=== PATIENT | female | born 1980 | race Caucasian/White ===

== ENCOUNTER 2017-09-30 18:59 | Emergency (ER) | payer MEDICAID | END 2017-09-30 20:43 | disposition home or self-care (01) | LOC: E/R 20:43 | DX: B34.9 Viral infection, unspecified (principal) | CPT/HCPCS: 99283; Z7502 ==

== ENCOUNTER 2018-03-09 09:20 | Emergency (ER) | payer MEDICAID ==
[2018-03-09 09:54] LABS: URINE BLOOD (Dip) POC 2+ (NEGATIVE); URINE GLUCOSE (Dip) POC Negative (NEGATIVE); URINE KETONES (Dip) POC Trace (NEGATIVE); URINE LEUKOCYTE EST (Dip) POC Negative (NEGATIVE); URINE NITRITE (Dip) POC Negative (NEGATIVE); URINE TOTAL PROTEIN POC Negative (NEGATIVE)
[2018-03-09 09:54] LABS: URINE PH (Dip) POC 5.5 (5.0-8.5)
[2018-03-09] MEDS: ACETAMINOPHEN 325 MG TAB PO ×2 (10:00→10:02)
[2018-03-09] MEDS: morphine 2 MG INJ IV ×2 (10:02→10:22)
[2018-03-09] MEDS: SOD CHLORIDE 0.9% 1,000 ML IV ×2 (10:02→11:40)
[2018-03-09] MEDS: ONDANSETRON 4 MG INJ IV ×2 (10:11→11:25)
[2018-03-09 10:20] LABS: ADD MAN DIFF? NO
[2018-03-09 10:22] LABS: BASOPHIL # 0.1 10^3/ul (0.0-0.1); BASOPHILS % 0.3 % (0.0-2.0); EOSINOPHILS # 0.1 10^3/ul (0.0-0.5); EOSINOPHILS % 0.4 % (0.0-7.0); HEMATOCRIT 37.7 % (37.0-47.0); HEMOGLOBIN 12.6 g/dl (12.0-16.0); LYMPHOCYTES # 2.6 10^3/ul (0.8-2.9); LYMPHOCYTES % 13.1 % (15.0-51.0); MEAN CORPUSCULAR HEMOGLOBIN 27.6 pg (29.0-33.0); MEAN CORPUSCULAR HGB CONC 33.4 g/dl (32.0-37.0); MEAN CORPUSCULAR VOLUME 82.5 fl (82.0-101.0); MEAN PLATELET VOLUME 10.9 fl (7.4-10.4); MONOCYTES % 4.8 % (0.0-11.0); NEUTROPHIL # 15.9 10^3/ul (1.6-7.5); NEUTROPHILS % 80.8 % (39.0-77.0); PLATELET COUNT 249 10^3/UL (140-415); RED BLOOD COUNT 4.57 10^6/ul (4.20-5.40)
[2018-03-09 10:22] LABS: WHITE BLOOD COUNT 19.7 10^3/ul (4.8-10.8)
[2018-03-09 10:39] LABS: ALANINE AMINOTRANSFERASE 28 IU/L (13-69); ALBUMIN/GLOBULIN RATIO 1.33; ALKALINE PHOSPHATASE 73 IU/L (42-121); ANION GAP 13 (8-16); ASPARTATE AMINO TRANSFERASE 16 IU/L (15-46); BILIRUBIN,INDIRECT 0.3 mg/dl (0-1.1); BILIRUBIN,TOTAL 0.3 mg/dl (0.2-1.3); BLOOD UREA NITROGEN 12 mg/dl (7-20); CALCIUM 9.6 mg/dl (8.4-10.2); CARBON DIOXIDE 22 mmol/L (21-31); CHLORIDE 107 mmol/L (97-110); CREATININE 0.43 mg/dl (0.44-1.00); GLUCOSE 110 mg/dl (70-220); LIPASE 91 U/L (23-300); POTASSIUM 3.9 mmol/L (3.5-5.1); SODIUM 138 mmol/L (135-144)
[2018-03-09 10:57] LABS: ADD UMIC YES; UR ASCORBIC ACID NEGATIVE (NEGATIVE); UR BILIRUBIN (Dip) NEGATIVE (NEGATIVE); UR BLOOD (Dip) 2+ mg/dL (NEGATIVE); UR CLARITY CLEAR (CLEAR); UR COLOR YELLOW (YELLOW); UR GLUCOSE (Dip) NEGATIVE (NEGATIVE); UR KETONES (Dip) NEGATIVE (NEGATIVE); UR LEUKOCYTE ESTERASE (Dip) NEGATIVE Leu/ul (NEGATIVE); UR NITRITE (Dip) NEGATIVE (NEGATIVE); UR RBC 4 /HPF (0-5); UR SPECIFIC GRAVITY (Dip) 1.029 (1.003-1.030); UR SQUAMOUS EPITHELIAL CELL FEW /HPF (FEW); UR TOTAL PROTEIN (Dip) NEGATIVE (NEGATIVE); UR UROBILINOGEN (Dip) NEGATIVE (NEGATIVE); UR WBC 0 /HPF (0-5)
[2018-03-09] MEDS: morphine 4 MG/ML VIAL IV (11:39)
[2018-03-09] MEDS: METOCLOPRAMIDE 10 MG INJ IV (11:39)
== END 2018-03-09 16:31 | disposition home or self-care (01) ==
LOC: FTE 09:20
DX: O26.892 Other specified pregnancy related conditions, second trimester (principal); K80.20 Calculus of gallbladder without cholecystitis without obstruction; O99.612 Diseases of the digestive system complicating pregnancy, second trimester; R10.2 Pelvic and perineal pain; O21.9 Vomiting of pregnancy, unspecified; Z3A.14 14 weeks gestation of pregnancy
CPT/HCPCS: 36415; 74181; 76705; 76805; 80053; 81001; 81003; 81025; 83690; 85025; 96374; 96375; 96376; 99285-25

== ENCOUNTER 2018-07-21 16:57 | Outpatient (CLI) | payer MEDICAID ==
[2018-07-21] MEDS: LACTATED RINGER'S 1,000 ML IV (18:50)
== END 2018-07-21 21:02 | disposition home or self-care (01) ==
LOC: OBT 16:57 → L-D 16:59 → OBT 21:02
DX: O24.410 Gestational diabetes mellitus in pregnancy, diet controlled (principal); Z3A.33 33 weeks gestation of pregnancy
CPT/HCPCS: 36415; 76818; 96360

== ENCOUNTER 2018-07-24 09:49 | Outpatient (CLI) | payer MEDICAID | END 2018-07-24 10:50 | disposition home or self-care (01) | LOC: OBT 09:49 → L-D 09:50 → OBT 10:50 | DX: O36.8130 Decreased fetal movements, third trimester, not applicable or unspecified (principal); Z3A.34 34 weeks gestation of pregnancy | CPT/HCPCS: 76818 ==

== ENCOUNTER 2018-08-03 11:08 | Inpatient (IN) | payer MEDICAID ==
[~2018-08-03 11:08] MED LIST: EPHEDrine SULFATE 50 MG/5 ML SYG
[2018-08-03] MEDS: LACTATED RINGER'S 1,000 ML IV ×2 (11:37→13:53)
[2018-08-03 17:19] LABS: ADD MAN DIFF? NO
[2018-08-03 17:23] LABS: WHITE BLOOD COUNT 7.7 10^3/ul (4.8-10.8)
[2018-08-03 17:23] LABS: BASOPHILS % 0.4 % (0.0-2.0); EOSINOPHILS # 0.1 10^3/ul (0.0-0.5); EOSINOPHILS % 0.9 % (0.0-7.0); HEMATOCRIT 36.6 % (37.0-47.0); HEMOGLOBIN 11.9 g/dl (12.0-16.0); LYMPHOCYTES # 1.9 10^3/ul (0.8-2.9); LYMPHOCYTES % 24.9 % (15.0-51.0); MEAN CORPUSCULAR HGB CONC 32.5 g/dl (32.0-37.0); MEAN CORPUSCULAR VOLUME 83.2 fl (82.0-101.0); MEAN PLATELET VOLUME 12.2 fl (7.4-10.4); MONOCYTE # 0.9 10^3/ul (0.3-0.9); MONOCYTES % 11.3 % (0.0-11.0); NEUTROPHIL # 4.8 10^3/ul (1.6-7.5); NEUTROPHILS % 62.2 % (39.0-77.0); PLATELET COUNT 193 10^3/UL (140-415); RED CELL DISTRIBUTION WIDTH 13.4 % (11.5-14.5)
[2018-08-03 17:43] LABS: ALANINE AMINOTRANSFERASE 21 IU/L (13-69); ALBUMIN 3.5 g/dl (3.3-4.9); ALBUMIN/GLOBULIN RATIO 1.25; ALKALINE PHOSPHATASE 162 IU/L (42-121); ANION GAP 9 (5-13); ASPARTATE AMINO TRANSFERASE 22 IU/L (15-46); BILIRUBIN,INDIRECT 0.2 mg/dl (0-1.1); BILIRUBIN,TOTAL 0.2 mg/dl (0.2-1.3); BLOOD UREA NITROGEN 10 mg/dl (7-20); CALCIUM 9.2 mg/dl (8.4-10.2); CARBON DIOXIDE 23 mmol/L (21-31); CHLORIDE 105 mmol/L (97-110); CREATININE 0.34 mg/dl (0.44-1.00); Estimated GFR > 60 mL/min (>60); GLUCOSE 53 mg/dl (70-220); SODIUM 137 mmol/L (135-144); TOTAL PROTEIN 6.3 g/dl (6.1-8.1)
[2018-08-03] MEDS: DEXTROSE 5%-LR 1,000 ML IV (18:18)
[2018-08-03 18:30] LABS: HEPATITIS B SURFACE ANTIBODY NEGATIVE (NEGATIVE)
[2018-08-03] MEDS: BETAMET NA PHOS/AC(6 MG/ML) 5ML INJ INJ (18:42)
[2018-08-03] MEDS ORDERED: MAGNESIUM SULFATE 4 GM/100 ML 100 ML IVPB (19:00)
[2018-08-03] MEDS ORDERED: MAGNESIUM SULFATE 20 GM/500 ML 500 ML IV (19:00)
[2018-08-03] MEDS: BETAMET NA PHOS/AC(6 MG/ML) 2 ML INJ SYG IM (19:05)
[2018-08-03] MEDS ORDERED: FENTAnyl 50 MCG/ML VIAL (19:13)
[2018-08-03] MEDS ORDERED: PHENYLephrine (100 MCG/ML) 5ML SYG ×2 (19:14→20:01)
[2018-08-03] MEDS ORDERED: morphine SULFATE/PF (10 MG/10 ML) INJ (19:14)
[2018-08-03] MEDS ORDERED: CEFAZOLIN 2 GM/50 ML (PMX) 50 ML IVPB (19:24)
[2018-08-03] MEDS ORDERED: ACCU-CHEK XX (19:35)
[2018-08-03] MEDS: CEFAZOLIN 2 GM/50 ML (PMX) 50 ML IVPB (19:40)
[2018-08-03] MEDS ORDERED: ONDANSETRON 4 MG INJ (19:51)
[2018-08-03] MEDS ORDERED: OXYTOCIN 30 UNITS/LR 500 ML IV (19:51)
[2018-08-03] MEDS ORDERED: ONDANSETRON 4 MG INJ IV (20:30)
[2018-08-03] MEDS ORDERED: HYDROmorphONE 0.5 MG/0.5 ML SYG IV ×2 (20:30)
[2018-08-03] MEDS ORDERED: NALOXONE (0.4 MG/ML) INJ IV (20:30)
[2018-08-03] MEDS ORDERED: ZOLPIDEM 5 MG TAB PO (20:30)
[2018-08-03] MEDS ORDERED: metFORMIN (XR) 500 MG TAB PO (21:00)
[2018-08-03] MEDS ORDERED: DEXTROSE 50% 50 ML SYRINGE IV ×2 (22:00)
[2018-08-03] MEDS ORDERED: GLUCOSE GEL 15 GRAM TUBE PO ×2 (22:00)
[2018-08-03] MEDS ORDERED: GLUCAGON 1 MG INJ IM (22:00)
[2018-08-03] MEDS ORDERED: GLUCOSE GEL 15 GRAM TUBE BUCCAL (22:00)
[2018-08-03] MEDS: OXYTOCIN 30 UNITS/LR 500 ML IV (22:25)
[2018-08-04] MEDS ORDERED: METHYLERGONOVINE 0.2 MG INJ IM
[2018-08-04] MEDS ORDERED: HYDROCODONE/APAP (5/325) TAB PO ×2
[2018-08-04] MEDS ORDERED: OXYTOCIN 30 UNITS/LR 500 ML IV
[2018-08-04] MEDS ORDERED: LANOLIN 7 GM TUBE TOP
[2018-08-04] MEDS ORDERED: CARBOPROST 250 MCG INJ IM
[2018-08-04] MEDS ORDERED: MISOPROSTOL 200 MCG TAB PR
[2018-08-04] MEDS ORDERED: OXYCODONE/ACETAMINOPHEN (5/325) TAB PO ×2
[2018-08-04] MEDS: DIPHENHYDRAMINE 50 MG INJ IV (00:59)
[2018-08-04] MEDS: INSULIN ASPART [NOVOLOG] 3 ML PEN SC ×10 (01:00→20:33)
[2018-08-04] MEDS ORDERED: INSULIN ASPART [NOVOLOG] 3 ML PEN SC ×2 (01:00→07:05)
[2018-08-04] MEDS: OXYTOCIN 30 UNITS/LR 500 ML IV ×7 (02:42→23:44)
[2018-08-04] MEDS: CEFAZOLIN 1 GM/50 ML (PMX) 50 ML IVPB (04:09)
[2018-08-04] MEDS: IBUPROFEN 600 MG TAB PO ×5 (06:00→23:54)
[2018-08-04] MEDS ORDERED: ACCU-CHEK XX (06:00)
[2018-08-04 07:36] LABS: ADD MAN DIFF? NO
[2018-08-04] MEDS: ACCU-CHEK XX ×4 (07:39→20:20)
[2018-08-04 07:40] LABS: BASOPHILS % 0.1 % (0.0-2.0); HEMATOCRIT 35.7 % (37.0-47.0); HEMOGLOBIN 11.8 g/dl (12.0-16.0); LYMPHOCYTES # 1.1 10^3/ul (0.8-2.9); MEAN CORPUSCULAR HEMOGLOBIN 26.9 pg (29.0-33.0); MEAN CORPUSCULAR HGB CONC 33.1 g/dl (32.0-37.0); MEAN CORPUSCULAR VOLUME 81.3 fl (82.0-101.0); MEAN PLATELET VOLUME 11.8 fl (7.4-10.4); MONOCYTE # 0.6 10^3/ul (0.3-0.9); MONOCYTES % 4.6 % (0.0-11.0); NEUTROPHILS % 86.7 % (39.0-77.0); PLATELET COUNT 172 10^3/UL (140-415); RED BLOOD COUNT 4.39 10^6/ul (4.20-5.40); RED CELL DISTRIBUTION WIDTH 12.9 % (11.5-14.5)
[2018-08-04 07:40] LABS: WHITE BLOOD COUNT 13.9 10^3/ul (4.8-10.8)
[2018-08-04] MEDS: PRENATAL VITAMIN PO (09:53)
[2018-08-04] MEDS: SENNA/DOCUSATE NA (8.6MG/50MG) TAB PO ×2 (09:53→20:25)
[2018-08-04] MEDS: LACTATED RINGER'S 1,000 ML IV (15:17)
[2018-08-04] MEDS: KETOROLAC 30 MG INJ IV (20:25)
[2018-08-04 22:00] LABS: RAPID PLASMA REAGIN NONREACTIVE (NR)
[2018-08-05] MEDS: INSULIN ASPART [NOVOLOG] 3 ML PEN SC ×10 (01:00→21:00)
[2018-08-05] MEDS: OXYTOCIN 30 UNITS/LR 500 ML IV ×5 (03:44→19:44)
[2018-08-05] MEDS: IBUPROFEN 600 MG TAB PO ×4 (05:26→23:42)
[2018-08-05] MEDS: ACCU-CHEK XX ×4 (07:30→20:32)
[2018-08-05] MEDS: PRENATAL VITAMIN PO (09:46)
[2018-08-05] MEDS: SENNA/DOCUSATE NA (8.6MG/50MG) TAB PO ×2 (09:46→22:43)
[2018-08-05] MEDS: NA PHOSPHATE/BIPHOS 133 ML ENEMA PR ×2 (10:00→22:44)
[2018-08-06] MEDS: IBUPROFEN 600 MG TAB PO ×2 (05:35→12:31)
[2018-08-06] MEDS: ACCU-CHEK XX ×2 (07:30→10:05)
[2018-08-06] MEDS: INSULIN ASPART [NOVOLOG] 3 ML PEN SC ×2 (07:35→11:20)
[2018-08-06] MEDS: SENNA/DOCUSATE NA (8.6MG/50MG) TAB PO (09:47)
[2018-08-06] MEDS: PRENATAL VITAMIN PO (09:47)
[2018-08-06] MEDS: DIPHTH/TET/ACEL PERTUSS (ADULT) 0.5 ML VIAL IM* (09:47)
== END 2018-08-06 13:50 | disposition home or self-care (01) | DRG 787 ==
LOC: OBT 11:08 → L-D 11:08 → OBT 15:57 → L-D 15:57 → PP1 23:38
PROC: 10D00Z1 Extraction of Products of Conception, Low, Open Approach (ICD-10-PCS; principal; 2018-08-03 19:45)
DX: O40.3XX0 Polyhydramnios, third trimester, not applicable or unspecified (principal); O24.113 Pre-existing type 2 diabetes mellitus, in pregnancy, third trimester; O32.8XX0 Maternal care for other malpresentation of fetus, not applicable or unspecified; O34.211 Maternal care for low transverse scar from previous cesarean delivery; Z3A.35 35 weeks gestation of pregnancy; Z37.0 Single live birth; E11.9 Type 2 diabetes mellitus without complications
CPT/HCPCS: 59025; 76816; 80053; 82962; 85025; 86592; 86706; 86850; 86900; 86901; 88307; 90686; 90715; 96360; 96361; 99464

== ENCOUNTER 2018-10-12 21:21 | Emergency (ER) | payer MEDICAID ==
[2018-10-13 00:20] LABS: ADD MAN DIFF? NO
[2018-10-13 00:31] LABS: BASOPHIL # 0.1 10^3/ul (0.0-0.1); BASOPHILS % 0.4 % (0.0-2.0); HEMATOCRIT 42.1 % (37.0-47.0); HEMOGLOBIN 13.8 g/dl (12.0-16.0); LYMPHOCYTES # 0.9 10^3/ul (0.8-2.9); LYMPHOCYTES % 5.3 % (15.0-51.0); MEAN CORPUSCULAR HEMOGLOBIN 26.8 pg (29.0-33.0); MEAN CORPUSCULAR HGB CONC 32.8 g/dl (32.0-37.0); MEAN CORPUSCULAR VOLUME 81.9 fl (82.0-101.0); MEAN PLATELET VOLUME 11.3 fl (7.4-10.4); MONOCYTE # 0.6 10^3/ul (0.3-0.9); MONOCYTES % 3.6 % (0.0-11.0); NEUTROPHIL # 15.4 10^3/ul (1.6-7.5); NEUTROPHILS % 90.1 % (39.0-77.0); RED BLOOD COUNT 5.14 10^6/ul (4.20-5.40); RED CELL DISTRIBUTION WIDTH 12.5 % (11.5-14.5)
[2018-10-13 00:34] LABS: PLATELET COUNT 220 10^3/UL (140-415); POSITIVE DIFF @See below
[2018-10-13] MEDS: ONDANSETRON 4 MG INJ IV (00:39)
[2018-10-13] MEDS: SOD CHLORIDE 0.9% 1,000 ML IV (00:39)
[2018-10-13 00:47] LABS: ALANINE AMINOTRANSFERASE 41 IU/L (13-69); ALBUMIN 4.9 g/dl (3.3-4.9); ALBUMIN/GLOBULIN RATIO 1.22; ALKALINE PHOSPHATASE 111 IU/L (42-121); ANION GAP 6 (5-13); ASPARTATE AMINO TRANSFERASE 43 IU/L (15-46); BILIRUBIN,INDIRECT 0.3 mg/dl (0-1.1); BILIRUBIN,TOTAL 0.3 mg/dl (0.2-1.3); BLOOD UREA NITROGEN 15 mg/dl (7-20); CARBON DIOXIDE 29 mmol/L (21-31); CHLORIDE 105 mmol/L (97-110); CREATININE 0.51 mg/dl (0.44-1.00); Estimated GFR > 60 mL/min (>60); GLUCOSE 130 mg/dl (70-220); LIPASE 80 U/L (23-300); POTASSIUM 4.6 mmol/L (3.5-5.1); SODIUM 140 mmol/L (135-144); TOTAL PROTEIN 8.9 g/dl (6.1-8.1)
[2018-10-13] MEDS: KETOROLAC 30 MG INJ IV (00:50)
[2018-10-13] MEDS: morphine 2 MG INJ IV (00:50)
[2018-10-13 00:52] LABS: ADD UMIC YES; UR ASCORBIC ACID NEGATIVE (NEGATIVE); UR BILIRUBIN (Dip) NEGATIVE (NEGATIVE); UR BLOOD (Dip) 2+ mg/dL (NEGATIVE); UR CLARITY CLEAR (CLEAR); UR COLOR YELLOW (YELLOW); UR GLUCOSE (Dip) NEGATIVE (NEGATIVE); UR KETONES (Dip) TRACE mg/dL (NEGATIVE); UR LEUKOCYTE ESTERASE (Dip) TRACE Leu/ul (NEGATIVE); UR MUCUS FEW /HPF (NONE SEEN); UR NITRITE (Dip) NEGATIVE (NEGATIVE); UR RBC 24 /HPF (0-5); UR SPECIFIC GRAVITY (Dip) 1.029 (1.003-1.030); UR TOTAL PROTEIN (Dip) 2+ mg/dl (NEGATIVE); UR UROBILINOGEN (Dip) NEGATIVE (NEGATIVE); UR WBC 4 /HPF (0-5)
[2018-10-13] MEDS: CIPROFLOXACIN 500 MG TAB PO (02:56)
== END 2018-10-13 03:33 | disposition home or self-care (01) ==
LOC: FTE 21:21
DX: R10.11 Right upper quadrant pain (principal); Z79.84 Long term (current) use of oral hypoglycemic drugs
CPT/HCPCS: 36415; 76705; 80053; 81001; 81025; 83690; 85025; 96361; 96374; 96375; 99285-25

== ENCOUNTER 2018-10-13 11:59 | Inpatient (IN) | payer MEDICAID ==
[2018-10-13] MEDS: SOD CHLORIDE 0.9% 1,000 ML IV ×2 (13:55→18:39)
[2018-10-13] MEDS: morphine 4 MG/ML VIAL IV (13:55)
[2018-10-13] MEDS: ONDANSETRON 4 MG INJ IV (13:55)
[2018-10-13 14:20] LABS: ADD MAN DIFF? NO
[2018-10-13 14:22] LABS: ADD UMIC YES; BASOPHIL # 0.1 10^3/ul (0.0-0.1); BASOPHILS % 0.4 % (0.0-2.0); EOSINOPHILS % 0.3 % (0.0-7.0); LYMPHOCYTES # 2.3 10^3/ul (0.8-2.9); LYMPHOCYTES % 16.8 % (15.0-51.0); MEAN CORPUSCULAR HEMOGLOBIN 26.4 pg (29.0-33.0); MEAN CORPUSCULAR HGB CONC 31.7 g/dl (32.0-37.0); MEAN CORPUSCULAR VOLUME 83.2 fl (82.0-101.0); MEAN PLATELET VOLUME 11.2 fl (7.4-10.4); MONOCYTE # 1.3 10^3/ul (0.3-0.9); MONOCYTES % 9.3 % (0.0-11.0); NEUTROPHIL # 9.9 10^3/ul (1.6-7.5); NEUTROPHILS % 72.8 % (39.0-77.0); PLATELET COUNT 248 10^3/UL (140-415); RED BLOOD COUNT 4.93 10^6/ul (4.20-5.40); RED CELL DISTRIBUTION WIDTH 12.9 % (11.5-14.5); UR ASCORBIC ACID NEGATIVE (NEGATIVE); UR BILIRUBIN (Dip) NEGATIVE (NEGATIVE); UR BLOOD (Dip) 2+ mg/dL (NEGATIVE); UR CLARITY CLEAR (CLEAR); UR COLOR STRAW (YELLOW); UR GLUCOSE (Dip) NEGATIVE (NEGATIVE); UR KETONES (Dip) NEGATIVE (NEGATIVE); UR LEUKOCYTE ESTERASE (Dip) NEGATIVE Leu/ul (NEGATIVE); UR NITRITE (Dip) NEGATIVE (NEGATIVE); UR RBC 0 /HPF (0-5); UR SPECIFIC GRAVITY (Dip) 1.003 (1.003-1.030); UR TOTAL PROTEIN (Dip) NEGATIVE (NEGATIVE); UR UROBILINOGEN (Dip) NEGATIVE (NEGATIVE); UR WBC 0 /HPF (0-5)
[2018-10-13 14:22] LABS: WHITE BLOOD COUNT 13.6 10^3/ul (4.8-10.8)
[2018-10-13 14:39] LABS: ALANINE AMINOTRANSFERASE 33 IU/L (13-69); ALBUMIN 4.6 g/dl (3.3-4.9); ALBUMIN/GLOBULIN RATIO 1.31; ALKALINE PHOSPHATASE 95 IU/L (42-121); ANION GAP 12 (5-13); ASPARTATE AMINO TRANSFERASE 25 IU/L (15-46); BILIRUBIN,INDIRECT 0.4 mg/dl (0-1.1); BILIRUBIN,TOTAL 0.4 mg/dl (0.2-1.3); BLOOD UREA NITROGEN 12 mg/dl (7-20); CALCIUM 9.5 mg/dl (8.4-10.2); CARBON DIOXIDE 26 mmol/L (21-31); CHLORIDE 102 mmol/L (97-110); CREATININE 0.53 mg/dl (0.44-1.00); Estimated GFR > 60 mL/min (>60); GLUCOSE 101 mg/dl (70-220); LIPASE 112 U/L (23-300); POTASSIUM 3.7 mmol/L (3.5-5.1); SODIUM 140 mmol/L (135-144); TOTAL PROTEIN 8.1 g/dl (6.1-8.1)
[2018-10-13] MEDS: PIPER-TAZO 3.375 GM IV (PMX) 100 ML IVPB ×2 (16:21→18:39)
[2018-10-13] MEDS ORDERED: MAGNESIUM HYDROXIDE 30ML CUP PO (17:30)
[2018-10-13] MEDS ORDERED: HYDROCODONE/APAP (5/325) TAB PO (17:30)
[2018-10-13] MEDS ORDERED: NACL 0.9% 3 ML SYG IV (17:30)
[2018-10-13] MEDS ORDERED: hydrALAzine 20 MG INJ IV (17:30)
[2018-10-13] MEDS ORDERED: NITROGLYCERIN (SL) 0.4 MG TAB SL (17:30)
[2018-10-13] MEDS ORDERED: ONDANSETRON 4 MG INJ IV ×2 (17:30→18:00)
[2018-10-13] MEDS ORDERED: ALBUTEROL/IPRATROPIUM (NEB) 3 ML AMP HHN (17:30)
[2018-10-13] MEDS ORDERED: LORAZEPAM 2 MG INJ IV (17:30)
[2018-10-13] MEDS ORDERED: ACETAMINOPHEN 325 MG TAB PO (18:00)
[2018-10-13 18:37] LABS: INR 0.98; PROTIME 13.1 Sec (11.9-14.9)
[2018-10-13 18:38] LABS: PARTIAL THROMBOPLASTIN TIME 30.5 Sec (23.0-35.0)
[2018-10-13 18:58] LABS: FREE T4 (FREE THYROXINE) 0.95 ng/dl (0.79-2.35)
[2018-10-13] MEDS: HEPARIN 5,000 UNIT/1 ML VIAL SC (20:38)
[2018-10-14] MEDS: morphine 2 MG INJ IV ×2 (00:10→04:40)
[2018-10-14] MEDS: PIPER-TAZO 3.375 GM IV (PMX) 100 ML IVPB ×4 (00:11→18:01)
[2018-10-14] MEDS: SOD CHLORIDE 0.9% 1,000 ML IV ×2 (06:08→13:05)
[2018-10-14 07:11] LABS: ADD MAN DIFF? NO
[2018-10-14 07:21] LABS: BASOPHILS % 0.5 % (0.0-2.0); EOSINOPHILS # 0.1 10^3/ul (0.0-0.5); EOSINOPHILS % 1.7 % (0.0-7.0); HEMATOCRIT 37.9 % (37.0-47.0); LYMPHOCYTES # 2.7 10^3/ul (0.8-2.9); LYMPHOCYTES % 45.8 % (15.0-51.0); MEAN CORPUSCULAR HEMOGLOBIN 26.5 pg (29.0-33.0); MEAN CORPUSCULAR HGB CONC 31.7 g/dl (32.0-37.0); MEAN CORPUSCULAR VOLUME 83.8 fl (82.0-101.0); MONOCYTE # 0.5 10^3/ul (0.3-0.9); MONOCYTES % 9.2 % (0.0-11.0); NEUTROPHIL # 2.5 10^3/ul (1.6-7.5); NEUTROPHILS % 42.5 % (39.0-77.0); PLATELET COUNT 213 10^3/UL (140-415); RED BLOOD COUNT 4.52 10^6/ul (4.20-5.40); RED CELL DISTRIBUTION WIDTH 13.2 % (11.5-14.5)
[2018-10-14 07:21] LABS: WHITE BLOOD COUNT 5.9 10^3/ul (4.8-10.8)
[2018-10-14 07:31] LABS: HEMOGLOBIN A1C 5.6 % (0-5.9)
[2018-10-14 07:41] LABS: CHOLESTEROL 164 mg/dl (100-200)
[2018-10-14 07:41] LABS: HDL CHOLESTEROL 80 mg/dl (34-82); LDL CHOLESTEROL,CALCULATED 69 mg/dl; TRIGLYCERIDES 75 mg/dl (0-149)
[2018-10-14 07:49] LABS: ANION GAP 5 (5-13); BLOOD UREA NITROGEN 9 mg/dl (7-20); CALCIUM 8.6 mg/dl (8.4-10.2); CARBON DIOXIDE 28 mmol/L (21-31); CHLORIDE 112 mmol/L (97-110); CREATININE 0.63 mg/dl (0.44-1.00); Estimated GFR > 60 mL/min (>60); GLUCOSE 85 mg/dl (70-220); MAGNESIUM 2.2 mg/dl (1.7-2.5); PHOSPHORUS 3.5 mg/dl (2.5-4.9); POTASSIUM 3.8 mmol/L (3.5-5.1); SODIUM 145 mmol/L (135-144)
[2018-10-14] MEDS: HEPARIN 5,000 UNIT/1 ML VIAL SC ×2 (09:00→21:35)
[2018-10-15] MEDS: PIPER-TAZO 3.375 GM IV (PMX) 100 ML IVPB ×3 (01:03→12:53)
[2018-10-15] MEDS: ACETAMINOPHEN 325 MG TAB PO ×2 (01:08→07:41)
[2018-10-15] MEDS: DOCUSATE SODIUM 100 MG CAP PO (06:09)
[2018-10-15 06:21] LABS: ADD MAN DIFF? NO
[2018-10-15 06:30] LABS: BASOPHILS % 0.6 % (0.0-2.0); EOSINOPHILS # 0.1 10^3/ul (0.0-0.5); EOSINOPHILS % 2.8 % (0.0-7.0); HEMATOCRIT 38.7 % (37.0-47.0); HEMOGLOBIN 12.3 g/dl (12.0-16.0); LYMPHOCYTES # 2.6 10^3/ul (0.8-2.9); LYMPHOCYTES % 52.9 % (15.0-51.0); MEAN CORPUSCULAR HEMOGLOBIN 26.5 pg (29.0-33.0); MEAN CORPUSCULAR HGB CONC 31.8 g/dl (32.0-37.0); MEAN CORPUSCULAR VOLUME 83.4 fl (82.0-101.0); MEAN PLATELET VOLUME 11.1 fl (7.4-10.4); MONOCYTE # 0.5 10^3/ul (0.3-0.9); MONOCYTES % 9.5 % (0.0-11.0); NEUTROPHIL # 1.7 10^3/ul (1.6-7.5); NEUTROPHILS % 34.2 % (39.0-77.0); PLATELET COUNT 221 10^3/UL (140-415); RED BLOOD COUNT 4.64 10^6/ul (4.20-5.40); RED CELL DISTRIBUTION WIDTH 13.1 % (11.5-14.5)
[2018-10-15 06:59] LABS: ANION GAP 7 (5-13); BLOOD UREA NITROGEN 10 mg/dl (7-20); CARBON DIOXIDE 28 mmol/L (21-31); CHLORIDE 105 mmol/L (97-110); CREATININE 0.58 mg/dl (0.44-1.00); Estimated GFR > 60 mL/min (>60); GLUCOSE 87 mg/dl (70-220); POTASSIUM 3.5 mmol/L (3.5-5.1); SODIUM 140 mmol/L (135-144)
[2018-10-15] MEDS: HEPARIN 5,000 UNIT/1 ML VIAL SC (09:09)
== END 2018-10-15 16:00 | disposition home or self-care (01) | DRG 395 ==
LOC: FTE 11:59 → PP2 17:48
DX: K35.80 Unspecified acute appendicitis (principal)
CPT/HCPCS: 36415; 74176; 76830; 76856; 80048; 80053; 80061; 81001; 83036; 83690; 83735; 84100; 84439; 84443; 85025; 85610; 85730; 87040; 96374; 96375; 99285-25

== ENCOUNTER 2018-11-26 12:43 | Inpatient (IN) | payer MEDICAID ==
[2018-11-26] MEDS: ONDANSETRON 4 MG INJ IV (15:15)
[2018-11-26] MEDS: SOD CHLORIDE 0.9% 1,000 ML IV (15:16)
[2018-11-26] MEDS: morphine 4 MG/ML VIAL IV (15:16)
[2018-11-26 15:18] LABS: ADD MAN DIFF? NO
[2018-11-26 15:19] LABS: BASOPHILS % 0.6 % (0.0-2.0); EOSINOPHILS # 0.1 10^3/ul (0.0-0.5); EOSINOPHILS % 1.2 % (0.0-7.0); HEMATOCRIT 43.5 % (37.0-47.0); LYMPHOCYTES # 2.1 10^3/ul (0.8-2.9); LYMPHOCYTES % 31.1 % (15.0-51.0); MEAN CORPUSCULAR HGB CONC 32.2 g/dl (32.0-37.0); MEAN PLATELET VOLUME 10.8 fl (7.4-10.4); MONOCYTE # 0.5 10^3/ul (0.3-0.9); NEUTROPHIL # 4.1 10^3/ul (1.6-7.5); NEUTROPHILS % 59.8 % (39.0-77.0); PLATELET COUNT 272 10^3/UL (140-415); RED BLOOD COUNT 5.18 10^6/ul (4.20-5.40); RED CELL DISTRIBUTION WIDTH 12.7 % (11.5-14.5)
[2018-11-26 15:19] LABS: WHITE BLOOD COUNT 6.9 10^3/ul (4.8-10.8)
[2018-11-26 15:28] LABS: ADD UMIC YES; UR ASCORBIC ACID NEGATIVE (NEGATIVE); UR BACTERIA FEW /HPF (NONE SEEN); UR BILIRUBIN (Dip) NEGATIVE (NEGATIVE); UR BLOOD (Dip) 2+ mg/dL (NEGATIVE); UR CLARITY SLIGHTLY CLOUDY (CLEAR); UR COLOR YELLOW (YELLOW); UR GLUCOSE (Dip) NEGATIVE (NEGATIVE); UR KETONES (Dip) NEGATIVE (NEGATIVE); UR LEUKOCYTE ESTERASE (Dip) NEGATIVE Leu/ul (NEGATIVE); UR NITRITE (Dip) NEGATIVE (NEGATIVE); UR RBC 2 /HPF (0-5); UR SPECIFIC GRAVITY (Dip) 1.011 (1.003-1.030); UR SQUAMOUS EPITHELIAL CELL FEW /HPF (FEW); UR TOTAL PROTEIN (Dip) NEGATIVE (NEGATIVE); UR UROBILINOGEN (Dip) NEGATIVE (NEGATIVE); UR WBC 5 /HPF (0-5)
[2018-11-26 15:43] LABS: ALANINE AMINOTRANSFERASE 393 IU/L (13-69); ALBUMIN/GLOBULIN RATIO 1.35; ALKALINE PHOSPHATASE 152 IU/L (42-121); ANION GAP 15 (5-13); ASPARTATE AMINO TRANSFERASE 488 IU/L (15-46); BILIRUBIN,INDIRECT 0.6 mg/dl (0-1.1); BILIRUBIN,TOTAL 0.6 mg/dl (0.2-1.3); BLOOD UREA NITROGEN 10 mg/dl (7-20); CALCIUM 9.7 mg/dl (8.4-10.2); CARBON DIOXIDE 27 mmol/L (21-31); CHLORIDE 102 mmol/L (97-110); CREATININE 0.44 mg/dl (0.44-1.00); Estimated GFR > 60 mL/min (>60); GLUCOSE 88 mg/dl (70-220); LIPASE 146 U/L (23-300); POTASSIUM 3.8 mmol/L (3.5-5.1); SODIUM 144 mmol/L (135-144); TOTAL PROTEIN 8.7 g/dl (6.1-8.1)
[2018-11-26] MEDS ORDERED: ONDANSETRON 4 MG INJ IV ×2 (20:00→21:30)
[2018-11-26] MEDS ORDERED: ACETAMINOPHEN 325 MG TAB PO (20:00)
[2018-11-26] MEDS ORDERED: ALBUTEROL/IPRATROPIUM (NEB) 3 ML AMP HHN (21:30)
[2018-11-26] MEDS ORDERED: morphine 2 MG INJ IV (21:30)
[2018-11-26] MEDS: DEXTROSE 5%-0.45% NACL 1,000 ML IV (22:35)
[2018-11-26] MEDS: NACL 0.9% 3 ML SYG IV (22:36)
[2018-11-27] MEDS: PIPER-TAZO 3.375 GM IV (PMX) 100 ML IVPB ×4 (00:21→18:44)
[2018-11-27] MEDS: SUMATRIPTAN 6 MG/0.5 ML INJ SC ×2 (04:42→14:12)
[2018-11-27 05:24] LABS: ADD MAN DIFF? NO
[2018-11-27 05:28] LABS: BASOPHILS % 0.7 % (0.0-2.0); EOSINOPHILS # 0.2 10^3/ul (0.0-0.5); EOSINOPHILS % 2.7 % (0.0-7.0); HEMATOCRIT 39.4 % (37.0-47.0); HEMOGLOBIN 12.9 g/dl (12.0-16.0); LYMPHOCYTES # 2.2 10^3/ul (0.8-2.9); LYMPHOCYTES % 37.1 % (15.0-51.0); MEAN CORPUSCULAR HEMOGLOBIN 27.2 pg (29.0-33.0); MEAN CORPUSCULAR HGB CONC 32.7 g/dl (32.0-37.0); MEAN CORPUSCULAR VOLUME 82.9 fl (82.0-101.0); MONOCYTE # 0.6 10^3/ul (0.3-0.9); MONOCYTES % 9.7 % (0.0-11.0); NEUTROPHIL # 2.9 10^3/ul (1.6-7.5); NEUTROPHILS % 49.6 % (39.0-77.0); PLATELET COUNT 234 10^3/UL (140-415); RED BLOOD COUNT 4.75 10^6/ul (4.20-5.40); RED CELL DISTRIBUTION WIDTH 12.6 % (11.5-14.5)
[2018-11-27 05:28] LABS: WHITE BLOOD COUNT 5.9 10^3/ul (4.8-10.8)
[2018-11-27 05:52] LABS: ALANINE AMINOTRANSFERASE 246 IU/L (13-69); ALBUMIN 4.1 g/dl (3.3-4.9); ALBUMIN/GLOBULIN RATIO 1.36; ALKALINE PHOSPHATASE 114 IU/L (42-121); ANION GAP 9 (5-13); ASPARTATE AMINO TRANSFERASE 152 IU/L (15-46); BILIRUBIN,INDIRECT 0.8 mg/dl (0-1.1); BILIRUBIN,TOTAL 0.8 mg/dl (0.2-1.3); BLOOD UREA NITROGEN 9 mg/dl (7-20); CALCIUM 9.1 mg/dl (8.4-10.2); CARBON DIOXIDE 28 mmol/L (21-31); CHLORIDE 106 mmol/L (97-110); CREATININE 0.54 mg/dl (0.44-1.00); Estimated GFR > 60 mL/min (>60); GLUCOSE 80 mg/dl (70-220); POTASSIUM 4.1 mmol/L (3.5-5.1); SODIUM 143 mmol/L (135-144); TOTAL PROTEIN 7.1 g/dl (6.1-8.1)
[2018-11-27] MEDS: FAMOTIDINE 20 MG INJ IV (10:48)
[2018-11-27] MEDS: ONDANSETRON 4 MG INJ IV (13:00)
[2018-11-27] MEDS: DEXTROSE 5%-0.45% NACL 1,000 ML IV ×2 (13:00→17:17)
[2018-11-27 21:16] LABS: TROPONIN-I < 0.012 ng/ml (0.000-0.120)
[2018-11-27] MEDS: NITROGLYCERIN (SL) 0.4 MG TAB SL (22:14)
[2018-11-28] MEDS: PIPER-TAZO 3.375 GM IV (PMX) 100 ML IVPB ×4 (00:01→22:12)
[2018-11-28] MEDS: DEXTROSE 5%-0.45% NACL 1,000 ML IV ×2 (05:59→12:47)
[2018-11-28 06:20] LABS: ADD MAN DIFF? NO
[2018-11-28 06:23] LABS: WHITE BLOOD COUNT 5.4 10^3/ul (4.8-10.8)
[2018-11-28 06:23] LABS: BASOPHILS % 0.7 % (0.0-2.0); EOSINOPHILS # 0.2 10^3/ul (0.0-0.5); EOSINOPHILS % 3.4 % (0.0-7.0); HEMATOCRIT 39.2 % (37.0-47.0); LYMPHOCYTES # 2.1 10^3/ul (0.8-2.9); LYMPHOCYTES % 39.5 % (15.0-51.0); MEAN CORPUSCULAR HEMOGLOBIN 27.3 pg (29.0-33.0); MEAN CORPUSCULAR HGB CONC 33.2 g/dl (32.0-37.0); MEAN CORPUSCULAR VOLUME 82.2 fl (82.0-101.0); MEAN PLATELET VOLUME 11.2 fl (7.4-10.4); MONOCYTE # 0.5 10^3/ul (0.3-0.9); MONOCYTES % 9.9 % (0.0-11.0); NEUTROPHIL # 2.5 10^3/ul (1.6-7.5); NEUTROPHILS % 46.3 % (39.0-77.0); PLATELET COUNT 241 10^3/UL (140-415); RED BLOOD COUNT 4.77 10^6/ul (4.20-5.40); RED CELL DISTRIBUTION WIDTH 12.8 % (11.5-14.5)
[2018-11-28 06:38] LABS: HEMOGLOBIN A1C 5.3 % (0-5.9)
[2018-11-28 06:58] LABS: LIPASE 109 U/L (23-300); MAGNESIUM 1.9 mg/dl (1.7-2.5)
[2018-11-28 07:02] LABS: ALANINE AMINOTRANSFERASE 163 IU/L (13-69); ALBUMIN 4.1 g/dl (3.3-4.9); ALBUMIN/GLOBULIN RATIO 1.28; ALKALINE PHOSPHATASE 111 IU/L (42-121); ANION GAP 6 (5-13); ASPARTATE AMINO TRANSFERASE 65 IU/L (15-46); BILIRUBIN,INDIRECT 0.7 mg/dl (0-1.1); BILIRUBIN,TOTAL 0.7 mg/dl (0.2-1.3); BLOOD UREA NITROGEN 9 mg/dl (7-20); CALCIUM 9.1 mg/dl (8.4-10.2); CARBON DIOXIDE 28 mmol/L (21-31); CHLORIDE 107 mmol/L (97-110); CREATININE 0.61 mg/dl (0.44-1.00); Estimated GFR > 60 mL/min (>60); GLUCOSE 100 mg/dl (70-220); POTASSIUM 3.4 mmol/L (3.5-5.1); SODIUM 141 mmol/L (135-144); TOTAL PROTEIN 7.3 g/dl (6.1-8.1)
[2018-11-28] MEDS: FAMOTIDINE 20 MG INJ IV ×2 (08:46→21:17)
[2018-11-28] MEDS: morphine 2 MG INJ IV (08:47)
[2018-11-28] MEDS: NITROGLYCERIN (SL) 0.4 MG TAB SL (12:34)
[2018-11-28] MEDS: POTASSIUM CHLORIDE 100 ML IVPB (14:06)
[2018-11-29] MEDS: DEXTROSE 5%-0.45% NACL 1,000 ML IV ×2 (02:09→10:33)
[2018-11-29 05:00] LABS: ADD MAN DIFF? NO
[2018-11-29 05:02] LABS: BASOPHILS % 0.8 % (0.0-2.0); EOSINOPHILS # 0.2 10^3/ul (0.0-0.5); EOSINOPHILS % 3.6 % (0.0-7.0); HEMATOCRIT 39.4 % (37.0-47.0); HEMOGLOBIN 13.2 g/dl (12.0-16.0); LYMPHOCYTES # 2.4 10^3/ul (0.8-2.9); LYMPHOCYTES % 44.9 % (15.0-51.0); MEAN CORPUSCULAR HEMOGLOBIN 27.3 pg (29.0-33.0); MEAN CORPUSCULAR HGB CONC 33.5 g/dl (32.0-37.0); MEAN CORPUSCULAR VOLUME 81.4 fl (82.0-101.0); MEAN PLATELET VOLUME 10.9 fl (7.4-10.4); MONOCYTE # 0.6 10^3/ul (0.3-0.9); MONOCYTES % 10.5 % (0.0-11.0); NEUTROPHIL # 2.1 10^3/ul (1.6-7.5); PLATELET COUNT 250 10^3/UL (140-415); RED BLOOD COUNT 4.84 10^6/ul (4.20-5.40); RED CELL DISTRIBUTION WIDTH 12.5 % (11.5-14.5)
[2018-11-29 05:02] LABS: WHITE BLOOD COUNT 5.3 10^3/ul (4.8-10.8)
[2018-11-29] MEDS: PIPER-TAZO 3.375 GM IV (PMX) 100 ML IVPB (05:25)
[2018-11-29 05:35] LABS: INR 0.98; PROTIME 13.1 Sec (11.9-14.9)
[2018-11-29 05:42] LABS: TROPONIN-I < 0.012 ng/ml (0.000-0.120)
[2018-11-29 05:42] LABS: ALANINE AMINOTRANSFERASE 129 IU/L (13-69); ALBUMIN 4.1 g/dl (3.3-4.9); ALBUMIN/GLOBULIN RATIO 1.41; ALKALINE PHOSPHATASE 98 IU/L (42-121); ANION GAP 10 (5-13); ASPARTATE AMINO TRANSFERASE 43 IU/L (15-46); BILIRUBIN,INDIRECT 0.6 mg/dl (0-1.1); BILIRUBIN,TOTAL 0.6 mg/dl (0.2-1.3); BLOOD UREA NITROGEN 9 mg/dl (7-20); CALCIUM 9.5 mg/dl (8.4-10.2); CARBON DIOXIDE 26 mmol/L (21-31); CHLORIDE 105 mmol/L (97-110); Estimated GFR > 60 mL/min (>60); GLUCOSE 82 mg/dl (70-220); POTASSIUM 4.2 mmol/L (3.5-5.1); SODIUM 141 mmol/L (135-144)
[2018-11-29] MEDS: FAMOTIDINE 20 MG INJ IV ×2 (08:20→20:30)
[2018-11-29] MEDS ORDERED: LIDOCAINE/MYLANTA 40 ML BTL PO (13:30)
[2018-11-29] MEDS: CIPROFLOXACIN 400MG/D5W 200 ML IVPB (20:28)
[2018-11-29] MEDS: ENOXAPARIN 40 MG/0.4 ML SYG SC (20:40)
[2018-11-29] MEDS: metroNIDAZOLE 500 MG/NS (PMX) 100 ML IVPB (22:15)
[2018-11-30] MEDS: DEXTROSE 5%-0.45% NACL 1,000 ML IV (02:30)
[2018-11-30] MEDS: metroNIDAZOLE 500 MG/NS (PMX) 100 ML IVPB (05:30)
[2018-11-30 05:50] LABS: ALANINE AMINOTRANSFERASE 106 IU/L (13-69); ALBUMIN 4.1 g/dl (3.3-4.9); ALBUMIN/GLOBULIN RATIO 1.36; ALKALINE PHOSPHATASE 104 IU/L (42-121); ANION GAP 8 (5-13); ASPARTATE AMINO TRANSFERASE 33 IU/L (15-46); BILIRUBIN,INDIRECT 0.6 mg/dl (0-1.1); BILIRUBIN,TOTAL 0.6 mg/dl (0.2-1.3); BLOOD UREA NITROGEN 8 mg/dl (7-20); CALCIUM 9.7 mg/dl (8.4-10.2); CARBON DIOXIDE 26 mmol/L (21-31); CHLORIDE 108 mmol/L (97-110); CREATININE 0.66 mg/dl (0.44-1.00); Estimated GFR > 60 mL/min (>60); GLUCOSE 98 mg/dl (70-220); SODIUM 142 mmol/L (135-144); TOTAL PROTEIN 7.1 g/dl (6.1-8.1)
[2018-11-30] MEDS: CIPROFLOXACIN 400MG/D5W 200 ML IVPB (08:43)
[2018-11-30] MEDS: FAMOTIDINE 20 MG INJ IV ×2 (08:43→21:29)
[2018-11-30] MEDS: ENOXAPARIN 40 MG/0.4 ML SYG SC (21:33)
[2018-12-01 05:27] LABS: WHITE BLOOD COUNT 5.9 10^3/ul (4.8-10.8)
[2018-12-01 05:27] LABS: ADD MAN DIFF? NO; BASOPHIL # 0.1 10^3/ul (0.0-0.1); BASOPHILS % 0.8 % (0.0-2.0); EOSINOPHILS # 0.2 10^3/ul (0.0-0.5); EOSINOPHILS % 2.9 % (0.0-7.0); HEMATOCRIT 40.7 % (37.0-47.0); HEMOGLOBIN 13.3 g/dl (12.0-16.0); LYMPHOCYTES # 3.2 10^3/ul (0.8-2.9); LYMPHOCYTES % 54.3 % (15.0-51.0); MEAN CORPUSCULAR HEMOGLOBIN 26.8 pg (29.0-33.0); MEAN CORPUSCULAR HGB CONC 32.7 g/dl (32.0-37.0); MEAN CORPUSCULAR VOLUME 82.1 fl (82.0-101.0); MEAN PLATELET VOLUME 11.4 fl (7.4-10.4); MONOCYTE # 0.6 10^3/ul (0.3-0.9); MONOCYTES % 10.5 % (0.0-11.0); NEUTROPHIL # 1.9 10^3/ul (1.6-7.5); NEUTROPHILS % 31.2 % (39.0-77.0); PLATELET COUNT 253 10^3/UL (140-415); RED BLOOD COUNT 4.96 10^6/ul (4.20-5.40); RED CELL DISTRIBUTION WIDTH 12.4 % (11.5-14.5)
[2018-12-01 06:24] LABS: ALANINE AMINOTRANSFERASE 91 IU/L (13-69); ALBUMIN 4.4 g/dl (3.3-4.9); ALBUMIN/GLOBULIN RATIO 1.37; ALKALINE PHOSPHATASE 106 IU/L (42-121); ANION GAP 12 (5-13); ASPARTATE AMINO TRANSFERASE 39 IU/L (15-46); BILIRUBIN,INDIRECT 0.5 mg/dl (0-1.1); BILIRUBIN,TOTAL 0.5 mg/dl (0.2-1.3); BLOOD UREA NITROGEN 13 mg/dl (7-20); CALCIUM 9.8 mg/dl (8.4-10.2); CARBON DIOXIDE 25 mmol/L (21-31); CHLORIDE 105 mmol/L (97-110); CREATININE 0.58 mg/dl (0.44-1.00); Estimated GFR > 60 mL/min (>60); GLUCOSE 88 mg/dl (70-220); POTASSIUM 3.7 mmol/L (3.5-5.1); SODIUM 142 mmol/L (135-144); TOTAL PROTEIN 7.6 g/dl (6.1-8.1)
[2018-12-01 06:28] LABS: PHOSPHORUS 4.8 mg/dl (2.5-4.9)
[2018-12-01 06:28] LABS: MAGNESIUM 1.9 mg/dl (1.7-2.5)
[2018-12-01] MEDS: FAMOTIDINE 20 MG INJ IV (09:00)
== END 2018-12-01 10:35 | disposition home or self-care (01) | DRG 446 ==
LOC: FTE 12:43 → TEL 11-27 21:24 → MS1 11-28 21:42
DX: K80.62 Calculus of gallbladder and bile duct with acute cholecystitis without obstruction (principal); E66.9 Obesity, unspecified; Z68.32 Body mass index [BMI] 32.0-32.9, adult; E80.6 Other disorders of bilirubin metabolism; R07.89 Other chest pain; R00.1 Bradycardia, unspecified
CPT/HCPCS: 36415; 71045; 74181; 76705; 80053; 81001; 81025; 82962; 83036; 83690; 83735; 84100; 84443; 84484; 85025; 85610; 93005; 93306; 96374; 96375; 99285-25

== ENCOUNTER 2019-01-12 02:20 | Inpatient (IN) | payer MEDICAID ==
[2019-01-12] MEDS: HYDROmorphONE 1 MG/ML SYG IV (04:49)
[2019-01-12] MEDS: FAMOTIDINE 20 MG INJ IV (04:49)
[2019-01-12] MEDS: SOD CHLORIDE 0.9% 1,000 ML IV ×3 (04:49→10:22)
[2019-01-12] MEDS: ONDANSETRON 4 MG INJ IV ×4 (04:49→18:06)
[2019-01-12 04:51] LABS: ADD MAN DIFF? NO
[2019-01-12 04:54] LABS: WHITE BLOOD COUNT 15.3 10^3/ul (4.8-10.8)
[2019-01-12 04:54] LABS: BASOPHILS % 0.3 % (0.0-2.0); EOSINOPHILS % 0.1 % (0.0-7.0); HEMATOCRIT 44.1 % (37.0-47.0); HEMOGLOBIN 14.2 g/dl (12.0-16.0); LYMPHOCYTES # 1.4 10^3/ul (0.8-2.9); LYMPHOCYTES % 9.2 % (15.0-51.0); MEAN CORPUSCULAR HEMOGLOBIN 26.8 pg (29.0-33.0); MEAN CORPUSCULAR HGB CONC 32.2 g/dl (32.0-37.0); MEAN CORPUSCULAR VOLUME 83.4 fl (82.0-101.0); MEAN PLATELET VOLUME 10.6 fl (7.4-10.4); MONOCYTE # 0.6 10^3/ul (0.3-0.9); MONOCYTES % 3.7 % (0.0-11.0); NEUTROPHIL # 13.2 10^3/ul (1.6-7.5); NEUTROPHILS % 86.4 % (39.0-77.0); PLATELET COUNT 307 10^3/UL (140-415); RED BLOOD COUNT 5.29 10^6/ul (4.20-5.40); RED CELL DISTRIBUTION WIDTH 11.7 % (11.5-14.5)
[2019-01-12 04:59] LABS: ADD UMIC YES; UR ASCORBIC ACID NEGATIVE (NEGATIVE); UR BACTERIA FEW /HPF (NONE SEEN); UR BILIRUBIN (Dip) NEGATIVE (NEGATIVE); UR BLOOD (Dip) 1+ mg/dL (NEGATIVE); UR CLARITY SLIGHTLY CLOUDY (CLEAR); UR COLOR YELLOW (YELLOW); UR GLUCOSE (Dip) NEGATIVE (NEGATIVE); UR KETONES (Dip) NEGATIVE (NEGATIVE); UR LEUKOCYTE ESTERASE (Dip) NEGATIVE Leu/ul (NEGATIVE); UR NITRITE (Dip) NEGATIVE (NEGATIVE); UR RBC 15 /HPF (0-5); UR SPECIFIC GRAVITY (Dip) 1.026 (1.003-1.030); UR SQUAMOUS EPITHELIAL CELL FEW /HPF (FEW); UR TOTAL PROTEIN (Dip) 1+ mg/dl (NEGATIVE); UR UROBILINOGEN (Dip) NEGATIVE (NEGATIVE); UR WBC 0 /HPF (0-5)
[2019-01-12 05:10] LABS: ALANINE AMINOTRANSFERASE 101 IU/L (13-69); ALBUMIN 4.6 g/dl (3.3-4.9); ALBUMIN/GLOBULIN RATIO 1.15; ALKALINE PHOSPHATASE 164 IU/L (42-121); ANION GAP 11 (5-13); ASPARTATE AMINO TRANSFERASE 59 IU/L (15-46); BILIRUBIN,INDIRECT 0.4 mg/dl (0-1.1); BILIRUBIN,TOTAL 0.4 mg/dl (0.2-1.3); BLOOD UREA NITROGEN 15 mg/dl (7-20); CALCIUM 9.8 mg/dl (8.4-10.2); CARBON DIOXIDE 27 mmol/L (21-31); CHLORIDE 105 mmol/L (97-110); CREATININE 0.59 mg/dl (0.44-1.00); Estimated GFR > 60 mL/min (>60); GLUCOSE 140 mg/dl (70-220); LIPASE 91 U/L (23-300); SODIUM 143 mmol/L (135-144); TOTAL PROTEIN 8.6 g/dl (6.1-8.1)
[2019-01-12] MEDS: PIPER-TAZO 3.375 GM IV (PMX) 100 ML IVPB ×2 (07:11→11:55)
[2019-01-12] MEDS: morphine 4 MG/ML VIAL IV (07:17)
[2019-01-12] MEDS ORDERED: ACETAMINOPHEN 325 MG TAB PO ×2 (08:00→17:30)
[2019-01-12] MEDS ORDERED: ACETAMINOPHEN 650 MG SUPP PR (10:30)
[2019-01-12] MEDS ORDERED: NACL 0.9% 3 ML SYG IV (10:30)
[2019-01-12] MEDS: morphine 2 MG INJ IV ×3 (10:55→19:51)
[2019-01-12] MEDS ORDERED: CEFAZOLIN 1 GM INJ (16:24)
[2019-01-12] MEDS ORDERED: MIDAZOLAM 1 MG/ML 2 ML INJ (16:24)
[2019-01-12] MEDS ORDERED: PROPOFOL 20 ML (16:24)
[2019-01-12] MEDS ORDERED: NEOSTIGMINE 3 MG/3 ML SYRINGE (16:24)
[2019-01-12] MEDS ORDERED: ONDANSETRON 4 MG INJ (16:24)
[2019-01-12] MEDS ORDERED: FENTAnyl 50 MCG/ML VIAL (16:24)
[2019-01-12] MEDS ORDERED: DEXAMETHASONE 4 MG/ML 5 ML INJ (16:24)
[2019-01-12] MEDS ORDERED: ROCURONIUM 50 MG INJ (16:24)
[2019-01-12] MEDS ORDERED: GLYCOPYRROLATE 0.4 MG INJ (16:24)
[2019-01-12] MEDS ORDERED: DESFLURANE 15 MIN (16:30)
[2019-01-12] MEDS ORDERED: FENTAnyl 50 MCG/ML VIAL IV ×2 (17:00)
[2019-01-12] MEDS ORDERED: ALBUTEROL 0.083% (NEB) 2.5 MG/3 ML AMP HHN (17:00)
[2019-01-12] MEDS ORDERED: TRIMETHOBENZAMIDE 100 MG/ML VIAL IM (17:00)
[2019-01-12] MEDS ORDERED: MEPERIDINE 25 MG INJ IV (17:00)
[2019-01-12] MEDS ORDERED: DIPHENHYDRAMINE 50 MG INJ IV (17:00)
[2019-01-12] MEDS ORDERED: MIDAZOLAM 1 MG/ML 2 ML INJ IV (17:00)
[2019-01-12] MEDS ORDERED: OXYCODONE/ACETAMINOPHEN (5/325) TAB PO ×2 (17:00)
[2019-01-12] MEDS ORDERED: HYDROmorphONE 1 MG/5 ML IV SYRINGE IV ×2 (17:00)
[2019-01-12] MEDS ORDERED: ONDANSETRON 4 MG INJ IV ×2 (17:00→17:30)
[2019-01-12] MEDS ORDERED: hydrALAzine 20 MG INJ IV (17:00)
[2019-01-12] MEDS ORDERED: LABETALOL HCL 20MG INJ IV (17:00)
[2019-01-12] MEDS ORDERED: EPHEDrine 25 MG/5 ML SYG IV (17:00)
[2019-01-12] MEDS ORDERED: IPRATROPIUM (NEB) 0.5 MG/2.5 ML AMP HHN (17:00)
[2019-01-12] MEDS ORDERED: KETOROLAC 30 MG INJ (17:08)
[2019-01-12] MEDS: LIDOCAINE 1%/EPI (1:100,000) (MDV) 20 ML (17:20)
[2019-01-12] MEDS: BUPIVACAINE 0.25% (MPF) 30 ML INJ (17:20)
[2019-01-12] MEDS ORDERED: HYDROCODONE/APAP (5/325) TAB PO (17:30)
[2019-01-12] MEDS ORDERED: morphine 2 MG INJ IV (17:30)
[2019-01-12] MEDS ORDERED: PIPER-TAZO 3.375 GM IV (PMX) 100 ML IVPB (18:00)
[2019-01-12] MEDS: FENTAnyl 50 MCG/ML VIAL IV (18:06)
[2019-01-12] MEDS: HYDROmorphONE 1 MG/5 ML IV SYRINGE IV (18:06)
[2019-01-12] MEDS: D5-NS + KCL 20 MEQ 1,000 ML IV (18:39)
[2019-01-13] MEDS: PIPER-TAZO 3.375 GM IV (PMX) 100 ML IVPB ×3 (01:55→13:58)
[2019-01-13] MEDS: morphine 2 MG INJ IV ×2 (02:16→06:48)
[2019-01-13] MEDS: ENOXAPARIN 40 MG/0.4 ML SYG SC (06:45)
[2019-01-13 07:32] LABS: ALANINE AMINOTRANSFERASE 62 IU/L (13-69); ALBUMIN 3.9 g/dl (3.3-4.9); ALBUMIN/GLOBULIN RATIO 1.25; ALKALINE PHOSPHATASE 99 IU/L (42-121); ANION GAP 7 (5-13); ASPARTATE AMINO TRANSFERASE 24 IU/L (15-46); BILIRUBIN,INDIRECT 0.4 mg/dl (0-1.1); BILIRUBIN,TOTAL 0.4 mg/dl (0.2-1.3); BLOOD UREA NITROGEN 7 mg/dl (7-20); CALCIUM 9.1 mg/dl (8.4-10.2); CARBON DIOXIDE 26 mmol/L (21-31); CHLORIDE 109 mmol/L (97-110); CHOL/HDL RATIO 2.4 RATIO; CHOLESTEROL 179 mg/dl (100-200); CREATININE 0.43 mg/dl (0.44-1.00); Estimated GFR > 60 mL/min (>60); GLUCOSE 155 mg/dl (70-220); HDL CHOLESTEROL 73 mg/dl (34-82); LDL CHOLESTEROL,CALCULATED 94 mg/dl; PHOSPHORUS 2.7 mg/dl (2.5-4.9); POTASSIUM 3.6 mmol/L (3.5-5.1); SODIUM 142 mmol/L (135-144); TRIGLYCERIDES 62 mg/dl (0-149)
[2019-01-13] MEDS: D5-NS + KCL 20 MEQ 1,000 ML IV ×2 (08:12→13:19)
[2019-01-13 09:39] LABS: HEMOGLOBIN A1C 5.2 % (0-5.9)
[2019-01-13] MEDS: IBUPROFEN 600 MG TAB PO (11:09)
== END 2019-01-13 16:00 | disposition home or self-care (01) | DRG 343 ==
LOC: FTE 02:20 → PP2 05:57
PROC: 0DTJ4ZZ Resection of Appendix, Percutaneous Endoscopic Approach (ICD-10-PCS; principal; 2019-01-12 16:30)
DX: K35.80 Unspecified acute appendicitis (principal); E66.9 Obesity, unspecified; Z68.30 Body mass index [BMI] 30.0-30.9, adult
CPT/HCPCS: 36415; 74176; 76705; 80053; 80061; 81001; 83036; 83690; 83735; 84100; 84703; 85025; 88304; 96365; 96375; 96376; 99285-25; G0378